=== PATIENT | male | born 1930 | race Caucasian/White ===

== ENCOUNTER 2016-06-18 09:30 | Inpatient (IN) | payer MEDICARE, BC ==
--- NOTE | ~2016-06-18 | EKG ---
PATIENT: WHITNEY SALAZAR UNIT #: [id number] Ventricular Rate: 140 BPM Atrial Rate: 156 BPM QRS Duration: 146 ms Q-T Interval: 370 ms QTC Calculation(Bezet): 564 ms Calculated R [place]: -154 degrees Calculated T [place]: 41 degrees Diagnosis Line: Atrial fibrillation with rapid ventricular Diagnosis Line: response Diagnosis Line: Right bundle branch block with repolarization Diagnosis Line: abnormality Diagnosis Line: Cannot rule out Anteroseptal infarct (cited on or Diagnosis Line: before 27-MAR-2011) Diagnosis Line: Abnormal ECG Diagnosis Line: When compared with ECG of 06-FEB-2014 12:03, Diagnosis Line: Atrial fibrillation has replaced Ectopic atrial Diagnosis Line: rhythm Diagnosis Line: Vent. rate has increased BY 87 BPM Diagnosis Line: Right bundle branch block is now Present Diagnosis Line: Questionable change in initial forces of Septal Diagnosis Line: leads Diagnosis Line: Confirmed by GUILLERMO ROCHA MD ([id number]) on 06/19/2016 Diagnosis Line: 6:16:20 PM INTERPRETING MD: JOSEFINA BSAS
--- NOTE | ~2016-06-18 | CO ---
Unit #: [id number] #: [id number] Patient: WHITNEY FATIMA [id number] [address] [place], [place] [address] [id number] I MR#: [id number] NAME: WHITNEY FATIMA ROOM: 569 Age: 85 Sex: M Admission Date: 06/19/2016 : 1930 Attending Physician: Lyndon Salas M.D. Primary Care Physician: Wojciech Sosa M.D. Consultation Date: 06/19/2016 CONSULTATION REPORT REASON FOR CONSULTATION Chronic kidney disease and congestive heart failure. HISTORY OF PRESENT ILLNESS Mr. Fatima is a very pleasant 85-year-old gentleman, who is a long-term patient of Dr. Leslie, who follows him for his history of heart disease, who was admitted after a fall at home. The patient had tripped and landed on his face and also has a broken bone in his left arm. There was no syncope associated with this fall. The patient is being followed after the fall here in the hospital and has also been treated for some atrial fibrillation with RVR as well as some shortness of breath and edema issues with congestive heart failure. The patient has long-term lower extremity swelling issues. He is noted to be on Norvasc. His states that he has also had some issues with shortness of breath and dyspnea on exertion at home. The patient denies any chest pain. No urinary complaints. No NSAID use. No history of kidney stones. The patient is still sore from his fall. PAST MEDICAL HISTORY Significant for coronary artery disease, chronic kidney disease stage 2, valvular heart disease, endocarditis, atrial fibrillation, hypertension, and hyperlipidemia. PAST SURGICAL HISTORY CABG, tissue aortic valve replacement, cholecystectomy, hemorrhoid surgery, and hernia repair. HOME MEDICATIONS Toprol-XL 25 mg a day, potassium chloride 10 mEq a day, penicillin 500 mg b.i.d., baby aspirin b.i.d., Ranexa 500 mg b.i.d., niacin a 1000 mg a day, Crestor 10 mg at bedtime, Plavix 75 mg a day, Lasix 40 mg a day, amiodarone 200 mg a day, Norvasc 2.5 mg a day, and magnesium oxide daily. ALLERGIES He has no known drug allergies. FAMILY HISTORY Significant for heart disease and hypertension. No family history of kidney problems. SOCIAL HISTORY The patient is . No alcohol, tobacco, or drug use. REVIEW OF SYSTEMS Unit #: [id number] #: [id number] Patient: WHITNEY FATIMA A complete 12-point review of systems was completed with the above findings. In addition, he denies any fevers or chills. No headache or dizziness. No nosebleed, sore throat, or earache. No cough or hemoptysis. No nausea, vomiting, or diarrhea. No abdominal pain. No rash or itching. No flank pain. No night sweats or hot flashes. No intolerance to heat or cold. He has had some bleeding from his facial wounds. No recent weight changes, but he probably has gained weight with his fluid retention. Unless otherwise indicated, the review of systems was negative. PHYSICAL EXAMINATION VITAL SIGNS: The patient is afebrile, pulse 98, respiratory rate 20, blood pressure 134/90, I's and O's are negative by 890 mL. GENERAL: This is a pleasant 85-year-old white male, sitting up in bed, alert, and oriented. Currently, in no acute distress. HEENT: Head is normocephalic. He does have some skin lacerations and bruising on his face. Eyes show pink conjunctivae with no scleral icterus. No nosebleed. Oropharynx is moist. No thrush. NECK: Shows no rigidity. HEART: Irregularly irregular with a murmur present. No rub appreciated. LUNGS: Shows some bibasilar rales more so on the left than the right. Breathing is nonlabored. ABDOMEN: Soft, nontender, and nondistended. Bowel sounds are present. EXTREMITIES: No lower extremity clubbing or cyanosis. He has 2+ pitting edema below the knees bilaterally. SKIN: Dry with no rashes. He does have some scattered bruising. MUSCULOSKELETAL: No CVA tenderness to palpation. Left arm is in a cast. NEUROLOGIC: Cranial nerves are grossly intact with no gross motor deficits. LYMPHATIC: There is no neck or cervical lymphadenopathy. PSYCHIATRIC: Mood and affect appear normal. DIAGNOSTIC STUDIES LABORATORY RESULTS: CBC this morning was remarkable only for a platelet count of 84. Chemistry this morning; sodium 137, potassium 3.2, chloride 103, bicarb 23, BUN and creatinine were 16 and 1.2 respectively. CK level 113, troponin negative. Uric acid level was 6.9, phosphorus 2.9, magnesium 2. Urinalysis done yesterday showed 2+ protein and no significant blood. BNP on admission was 1100. Creatinine on admission was 1.4, which looks to be near his baseline. Previous UAs here have demonstrated consistent proteinuria. IMAGING STUDIES: The patient did have a kidney ultrasound in 04/2016, which showed a small cyst in the right kidney. ASSESSMENT AND PLAN 1. Chronic kidney disease, stage 2. Overall, the patient's kidney function remained stable and is likely due to underlying nephrosclerosis. We will monitor with needed diuresis. 2. Congestive heart failure, which is due to mitral valvular disease and diastolic dysfunction. Agree with continued IV Bumex. 3. Hypokalemia. Magnesium level was okay and we will be replacing this aggressively this morning. 4. Edema. Agree with diuresis and stopping his Norvasc. 5. Proteinuria. We will consider CAT inhibition or angiotensin receptor marty once we complete his aggressive diuresis. 6. History of endocarditis, on penicillin. Unit #: [id number] #: [id number] Patient: WHITNEY FATIMA 7. History of coronary artery bypass grafting and aortic valve replacement. 8. History of atrial fibrillation. I would like to thank Dr. Salas for this consult and the opportunity to participate in evaluation and care of Mr. Fatima. Dictated by... Dwayne Hobson Jr., MJelani. PITA/akil TD: 06/19/2016 08:43 JOB #: [id number] CONSULTATION REPORT X Dwayne Hobson MD X CONSULTATION REPORT
--- NOTE | ~2016-06-18 | CO ---
Unit #: [id number] #: [id number] Patient: WHITNEY FATIMA [id number] [address] [address] [id number] I MR#: [id number] NAME: WHITNEY FATIMA. ROOM: 569 Age: 85 Sex: M Admission Date: 06/19/2016 : 1930 Attending Physician: Lyndon Salas M.D. Primary Care Physician: Wojciech Sosa M.D. Consultation Date: 06/19/2016 CONSULTATION REPORT CHIEF COMPLAINT Left wrist pain, status post fall. HISTORY OF PRESENT ILLNESS Mr. Fatima is an 85-year-old male with a history of CHF, atrial fibrillation, and multiple cardiac surgeries. He has history of chronic kidney disease. Yesterday, he was walking down the driveway when he fell and landed on his left wrist and face. He had left wrist pain as well as significant amount of bleeding due to his facial laceration, so he was brought to the [facility] ER for further workup. In the ER, he was diagnosed with a left distal radius fracture. He was placed in a short-arm splint and Orthopedic Surgery was consulted for further evaluation. He was admitted for CHF exacerbation, atrial fibrillation, and chronic kidney disease. PAST MEDICAL HISTORY 1. Coronary artery disease, status post coronary artery bypass graft x4. 2. Tissue aortic valve replacement. 3. Atrial fibrillation. 4. Hypertension. 5. Hyperlipidemia. 6. Chronic kidney disease. PAST SURGICAL HISTORY 1. Coronary artery bypass graft and tissue aortic valve replacement. 2. Cholecystectomy. 3. Hemorrhoid surgery. 4. Hernia repair. HOME MEDICATIONS Metoprolol succinate, potassium chloride, penicillin, aspirin, Ranexa, niacin, Crestor, Plavix, Lasix, amiodarone, Norvasc, magnesium oxide. ALLERGIES No known drug allergies. SOCIAL HISTORY The patient lives at home with his . He denies any tobacco use. He denies any history of alcohol or illicit drug use. FAMILY HISTORY Noncontributory to current illness. Unit #: [id number] #: [id number] Patient: WHITNEY FATIMA REVIEW OF SYSTEMS A 10-point review of systems was conducted, it is negative except for as noted in the HPI. PHYSICAL EXAMINATION VITAL SIGNS: Temperature is 98.0, pulse is 102, respirations 18, blood pressure 125/59. CONSTITUTIONAL: This is an 85-year-old male, who is currently sitting up in a chair in his room. He is in no acute distress. SKIN: There are multiple lacerations on his face that has been closed with sutures. HEENT: Normocephalic. Pupils are equal, round, and reactive to light. NECK: Supple without thyromegaly or lymphadenopathy. HEART: Rhythm is irregular. LUNGS: Symmetric chest rise. No increased work of breathing. ABDOMEN: Soft. NEUROLOGIC: Cranial nerves II through XII are grossly intact. PSYCHIATRIC: The patient is awake, alert, oriented x3. EXTREMITIES: The left upper extremity is examined. He is currently in a short-arm splint. He has mild swelling in the left hand. He is neurovascularly intact in the median, ulnar, and radial nerve. He has normal sensation to light touch in all 5 digits. DIAGNOSTIC STUDIES LABORATORY RESULTS: White blood cell count is 4.6, hemoglobin 13.5, hematocrit is 40.6. IMAGING STUDIES: An x-ray of the left wrist reveals a nondisplaced left distal radius fracture. There is no dorsal tilt noted with x-ray. IMPRESSION Left distal radius fracture. PLAN The patient has a nondisplaced left distal radius fracture. At this time, he has not required any surgical intervention. He will remain nonweightbearing of the left upper extremity and in a splint. We will have nursing staff keep his left upper extremity elevated and use ice as needed for swelling. He will follow up in our office in 1 week time for repeat x-ray of the left wrist and casting and bracing. He may perform range of motion of the fingers in the left hand as tolerated. Dictated by... Olaf Dickinson APRN for Hong Iglesias/akil TD: 06/19/2016 21:29 JOB #: [id number] Unit #: [id number] #: [id number] Patient: WHITNEY FATIMA CONSULTATION REPORT X OLAF DICKINSON APRN X CONSULTATION REPORT
--- NOTE | ~2016-06-18 | CR141 ---
[facility] A Service of [facility] & [facility] RADIOLOGY TEXT RESULTS PATIENT: WHITNEY SALAZAR LOCATION: [facility] 569-01 : 31 UNIT #: [id number] AGE: [address]: Lyndon Salas MD SEX: M ORDER DR: [id number] [facility] [address] [facility]. [place], [place] [address] [id number] I MR#: [id number] Acc #: [id number] NAME: WHITNEY SALAZAR. : 1930 SEX: M STUDY DATE/TIME: 06/18/2016 13:53 UNIT: CEDOF ROOM: [id number] STUDY DESCRIPTION: CR Hand Min 3 Views Lt Attending Physician: Lyndon Salas M.D. Ordering Physician: Mirna Morin M.D. Primary Care Physician: Wojciech Sosa M.D. MEDICAL IMAGING REPORT This report is preliminary unless electronic signature is present EXAM Left hand 06/18/2016 HISTORY Pain after falling this morning. TECHNIQUE 3 views of the _hand_ were obtained. FINDINGS 3 views of the hand show a linear lucency through the distal radius that is nondisplaced and not impacted but suspicious for a hairline fracture. There may be a vertical component extending to articular surface of the distal radius. Also noted are advanced degenerative changes at the first carpometacarpal joint. There are moderate degenerative changes at the third MCP joint and at the interphalangeal joints at the digits. No radiodense foreign bodies are seen over the hand but there is a small metallic density seen very superficially that may be related to either a watch or a band. It might be on the skin rather than in the skin. It measures about 1-2 mm in diameter. IMPRESSION 1. Probable comminuted nondisplaced distal radial fracture. 2. Degenerative changes at the wrist and hand. 3. No fractures at the hand. Dictated by... Roshan Tapia M.D. THIS IS AN ELECTRONICALLY VERIFIED REPORT Roshan Tapia M.D. at 06/19/2016 8:39 [address] [facility] A Service of [facility] & [facility] RADIOLOGY TEXT RESULTS PATIENT: WHITNEY SALAZAR LOCATION: [facility] 569-01 : 31 UNIT #: [id number] AGE: [address]: Lyndon Salas MD SEX: M ORDER DR: Zoe TD: 06/18/2016 15:59 JOB #: [id number] MEDICAL IMAGING REPORT COPY
--- NOTE | ~2016-06-18 | HP ---
Unit #: [id number] #: [id number] Patient: WHITNEY SALAZAR [id number] [address] [place], [place] [address] [id number] I MR#: [id number] NAME: WHITNEY SALAZAR ROOM: 569 Age: 85 Sex: M Admission Date: 06/18/2016 : 1930 Attending Physician: Lyndon Salas M.D. Primary Care Physician: Wojciech Sosa M.D. HISTORY AND PHYSICAL REVISED REPORT HISTORY OF PRESENT ILLNESS This is an 85-year-old white male known to Dr. Leslie with a past medical history of coronary artery disease, status post coronary artery bypass grafting x4 on May 25, [address] Jung at [facility]. The patient had a tissue aortic valve replacement subsequently. 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 He is on chronic penicillin. According to documentation, he was seen by Dr. Langley for endocarditis and did not want to undergo surgery. He is known to have atrial fibrillation. Last EKG from May 2015 revealed atrial fibrillation. The patient has refused anticoagulation. He presented to the hospital after sustaining a fall. The patient states that he tripped and fell and landed on his face. There were no precipitating symptoms of dizziness or palpitations. He denies any chest pain. He has had some shortness of breath with exertion but no PND or orthopnea. He admits to chronic lower extremity edema but states that it is no worse than normal. In the emergency department, his temperature was 97.7, pulse 133, respirations 26 and blood pressure 126/[address] of the maxillofacial area revealed a transversely oriented complete fracture at the most superior aspect of the midline nasal none. There was associated softy tissue swelling along the nose. CT of the head revealed no acute findings. Labs revealed a creatinine of 1.4. Potassium and magnesium were normal. CBC was unremarkable. EKG revealed atrial fibrillation with a rapid ventricular response and a right bundle branch block. The patient was started on an amiodarone drip for atrial fibrillation and Cardiology was consulted. PAST MEDICAL HISTORY 1. Coronary artery disease, status post coronary artery bypass grafting x4 with left internal mammary artery to the LAD, saphenous vein graft to the left circumflex, saphenous vein graft to the first obtuse marginal, and saphenous vein graft to the posterior lateral marginal by Dr. Jung at [facility] May 25, 2000. 2. Tissue aortic valve replacement 05/25/2006. 3. History of chronic endocarditis on penicillin. 4. Two-D echocardiogram May 2015 at [facility] revealed: Normal left ventricular systolic function. Mild mitral regurgitation. Mild mitral stenosis. Mild tricuspid regurgitation. No pericardial effusion. 5. Atrial fibrillation, likely permanent. According to documentation patient refuses anticoagulation. 6. Hypertension. Unit #: [id number] #: [id number] Patient: WHITNEY SALAZAR 7. Hyperlipidemia 8. Chronic kidney disease. PAST SURGICAL HISTORY 1. Coronary artery bypass grafting and tissue aortic valve replacement. 2. Cholecystectomy. 3. Hemorrhoid surgery. 4. Hernia repair. HOME MEDICATIONS 1. Metoprolol succinate 25 mg p.o. daily. 2. Potassium chloride 10 mEq p.o. daily. 3. Penicillin 500 mg p.o. b.i.d. 4. Aspirin 81 mg p.o. b.i.d. 5. Ranexa 500 mg p.o. b.i.d. 6. Niacin 1000 mg p.o. daily. 7. Crestor 10 mg p.o. q.h.s. 8. Plavix 75 mg p.o. daily. 9. Lasix 40 mg p.o. daily. 10. Amiodarone 200 mg p.o. daily. 11. Norvasc 2.5 mg p.o. daily. 12. Magnesium oxide 400 mg p.o. daily. ALLERGIES No known drug allergies. SOCIAL HISTORY The patient lives in a private residence. He is a nonsmoker. There are no reports of alcohol or illicit drug use. FAMILY HISTORY Significant for heart disease in his mother, sister and brother. REVIEW OF SYSTEMS Twelve-point review of systems negative except for details noted above in HPI. PHYSICAL EXAMINATION VITAL SIGNS: Temperature 98.1. Pulse 112. Blood pressure 134/92. CONSTITUTIONAL: This is an 85-year-old white male in no acute distress. SKIN: Skin is warm and dry. NECK: Neck is supple. Positive jugular vein distention. No hepatojugular reflux. Normal carotid upstrokes. No carotid bruits are auscultated. HEART: S1, S2. Irregularly irregular and tachycardia. No murmurs, rubs or gallops. LUNGS: Bilateral breath sounds have rales in the bases. Respirations even and unlabored. No rhonchi or wheezes. ABDOMEN: Soft, nontender and nondistended. Positive bowel sounds auscultated x4 quadrants. No ascites noted. EXTREMITIES: Bilateral lower extremities have +3 pitting edema. DP and PT pulses 2+. Capillary refill less than two seconds. DIAGNOSTIC STUDIES LABORATORY: White blood cell count 4.6, hemoglobin 13.5, hematocrit 40.6, platelets 101, sodium 137, potassium 3.6, chloride 104, CO2 22, BUN 18, creatinine 1.4, glucose 112, magnesium 2.0, AST 43, ALT 38, alkaline phosphatase 135, troponin 0.03 and 0.05. UA with trace leukocytes. Unit #: [id number] #: [id number] Patient: WHITNEY SALAZAR IMAGING: Chest x-ray reveals moderately severe congestive heart failure new since previous exam. CT of the maxillofacial area without contrast reveals a transversely oriented complete fracture of the most superior aspect of the midline nasal bones. Distal fracture fragment measures about 5 mm in length and shows very mild inferior angulation with no significant distraction or displacement. Deep to this there is a fracture of the anterior bony nasal septum near its junction with the nasal bones. There is also a fracture of the anterior inferior nasal spine. There is associated soft tissue swelling along the nose. There is a small area of subcutaneous air favored to be a reflection of the nasal fractures. No other fracture seen. Degenerative changes in the cervical spine. CT of the head without contrast reveals no acute finding. Cerebral atrophy and microangiopathic disease noted. Extensive mucosal thickening seen throughout the ethmoid sinuses with air fluid level noted within the right maxillary sinus and extensive fluid and debris seen within the right nasopharynx. CARDIOVASCULAR: EKG reveals atrial fibrillation with a rapid ventricular response of 140 beats per minute. Right bundle branch block. Possible right axis deviation. Poor R-wave progression in the lateral leads. QTc prolonged to 564 msec. IMPRESSION 1. Status post mechanical fall with midline nasal bone fractures. 2. Facial lacerations. 3. Acute diastolic congestive heart failure secondary to mitral valve disease. 4. Recurrent endocarditis of the mitral valve. 5. Coronary artery disease, status post four vessel coronary artery bypass grafting in 2000. 6. Valvular heart disease, status post tissue aortic valve replacement for aortic stenosis in 2006. 7. Permanent atrial fibrillation with rapid ventricular rate, refuses anticoagulation. 8. Chronic kidney disease. PLAN 1. The patient presented to the hospital after sustaining a fall. CT of the maxillofacial area revealed a nasal fracture. 2. Cardiology was consulted due to fall and atrial fibrillation. The patient has a history of atrial fibrillation and this is likely permanent. His amiodarone will be discontinued. 3. His beta marty will be increased with the first dose given now. 4. There is evidence of volume overload and congestive heart failure. He will be started on IV Bumex, strict intake and output and fluid restriction. 5. He will be placed on a potassium supplement. 6. He will be continued on home dosing of aspirin, Ranexa, niacin, Plavix and hydralazine. 7. Dr. Lee with Nephrology will be consulted per patient request. 8. There are no complaints of chest pain. Will trend cardiac enzymes and EKG. 9. A TSH and fasting lipid profile will be obtained in the a.m. Unit #: [id number] #: [id number] Patient: WHITNEY SALAZAR Dictated by Lashonda Malik APRN for Hong Matos/sofia TD: 06/18/2016 17:47 JOB #: [id number] HISTORY AND PHYSICAL X X HISTORY AND PHYSICAL
--- NOTE | ~2016-06-18 | DS ---
Unit #: [id number] #: [id number] Patient: WHITNEY SALAZAR [id number] [address] [place], [place] [address] [id number] I MR#: [id number] NAME: WHITNEY SALAZAR ROOM: 569 Age: 85 Sex: M Admission Date: 06/19/2016 : 1930 Discharge Date: 06/22/2016 Attending Physician: Lyndon Salas M.D. Primary Care Physician: Wojciech Sosa M.D. DISCHARGE SUMMARY DISCHARGE DIAGNOSES 1. Status post mechanical fall with mid nasal bone fracture and also a left distal radius fracture with nondisplaced. No surgery required. 2. Acute diastolic congestive heart failure, LVEF of 60% to 65%. Last 2D echo done in Dr. Leslie's office on 06/12/2015 revealed LVEF of 60% to 65% with mild mitral regurgitation, mild mitral stenosis, mild tricuspid regurgitation. 3. History of coronary artery bypass graft back in 2010, AYALA to the LAD, saphenous vein graft to the circumflex, saphenous vein graft to the obtuse marginal 1, and saphenous vein graft to the posterolateral marginal by Dr. Jung at [facility]. 4. Aortic valve replacement with a tissue valve in 2006. 5. Hypokalemia. 6. Acute renal insufficiency, which is improved. 7. Thrombocytopenia. 8. Prominent atrial fibrillation with rapid ventricular response. Had been refusing anticoagulation but now is willing to take Pradaxa. 9. 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 DISCHARGE MEDICATIONS 1. Mag oxide 400 mg p.o. daily. 2. Pradaxa 75 mg p.o. twice daily, new prescription. 3. Metoprolol 50 mg p.o. every 12 hours. 4. Lasix 40 mg increased to twice daily. 5. Crestor 10 mg p.o. daily. 6. Penicillin 500 mg p.o. daily. 7. Ranexa 500 mg p.o. twice daily. 8. Aspirin and Plavix since starting on Pradaxa. 9. Potassium 10 mEq p.o. twice daily. 10. Niacin 1,000 mg p.o. daily. 11. Adams nasal spray as directed. HOSPITAL COURSE The is an 85-year-old white male who was brought into the hospital after sustaining a mechanical fall. He said he tripped and fell and landed on his face. He has got some abrasions on his midline nasal bone. CT of his maxillofacial area revealed a transversely complete fracture at the most superior aspect of the midline nasal bone. There is also some associated tissue swelling along the nose. CT of the head revealed nothing acute. There was also noted a fracture of the anterior inferior nasal spine. The patient also complained of pain in his left wrist after he fell. He had x-rays done and it did reveal a nondisplaced left distal radius fracture. Orthopedic surgery has seen the patient and they feel like that at this Unit #: [id number] #: [id number] Patient: WHITNEY SALAZAR time it would not require any surgical intervention, just a splint. The plans are for him to follow up in their office in one week and repeat the x-ray of the left wrist, and cast and bracing. Patient was found to be in acute on chronic kidney disease, along with atrial fibrillation. We asked nephrology to be on the case due to needing to diurese, due to fluid overload. With his chronic kidney disease, he was maintained on IV Bumex during this hospitalization and had good results. He has got decreased lower extremity edema and he states he feels he is breathing better when he ambulates. He has been ambulating up in the room in the ham without a lot of dyspnea and he says his edema has improved. Also stopped his Norvasc, which he was on at home, that seemed to also be helping his lower extremity edema. Dr. Olivera had a long discussion with the patient about the risks and benefits of being on anticoagulation for his atrial fibrillation. He did not like the idea of the Coumadin, coming in for frequent lab tests, etc, so she talked to him about one of the newer anticoagulants and he was agreeable to try. Ran the cost of several and Pradaxa 75 mg p.o. twice daily is the option, it is $47 a month and it was checked with the patient and he says he is comfortable with that cost. The prescription was filled and it is with the patient because he had is filled at [facility]. The patient will be seeing a upholstery trimmer as an outpatient and he will be making that appointment tomorrow. The patient today on discharge, his BUN is 30 with a creatinine of 1.5. Also, Dr. Gastelum's recommendation is for him to be on Lasix 20 mg p.o. twice daily, instead of one daily and to be on supplemental potassium. The patient did have some low potassium during this admission and it was supplemented. On the day of discharge, the patient is in stable condition. He denies any increased shortness of breath or dizziness or shortness of breath. He did not have any signs or symptoms of unstable angina on admission. His cardiac enzymes are negative. EKG never showed any acute ischemic changes. The patient's rhythm remains in atrial fibrillation. His rate was a little tachycardic on admission and his metoprolol has been increased from 25 daily to 50 mg every 12 hours, along with stopping his amiodarone since he is maintaining a normal sinus rhythm and stopping the Norvasc. His blood pressure has remained stable. Dr. Salas wants to discontinue his Plavix and aspirin to avoid any problems with bleeding while he has been started on new anticoagulation and Pradaxa. Also has started the patient on some Lanoxin during this admission but that will be stopped also. Due to having some renal issues and his heart rate and blood pressures being better controlled on the metoprolol at the higher dose. PHYSICAL EXAMINATION AT TIME OF DISCHARGE VITAL SIGNS: Blood pressure 126/60, heart rate is 70, respirations 18, afebrile. HEART: S1 and S2, regular rate and rhythm. Soft systolic murmur left sternal border. LUNGS: Diminished but clear. ABDOMEN: Soft, nontender. EXTREMITIES: Pedal pulses are palpable with decreased edema. LATEST LABORATORY/DIAGNOSTIC DATA Glucose was 104, BUN 30, creatinine 1.5, EGFR is 47.4, sodium 135, potassium 3.2. He is getting a total of 40 mEq x2 doses today before discharge. Chloride is 94, CO2 30, calcium is 9.0, phosphorus 5.0, magnesium 2.0. WBC 7.5, hemoglobin 12.2, hematocrit 36.4 and platelets is Unit #: [id number] #: [id number] Patient: WHITNEY SALAZAR 102. CARDIOLOGY STUDIES: EKG continued showing atrial fibrillation with controlled rates of the 70s and 90s. PLAN/INSTRUCTIONS 1. Patient will be discharged home today. Instructed to followup with his primary care physician in one to two weeks. Will have a BNP as an outpatient. 2. Patient is going to make a followup appointment with Dr. Gastelum as an outpatient for followup with his renal issues. 3. Patient is going to make an appointment to see Dr. Leslie in the next week to two weeks to go over everything that was changed during his hospitalization. 4. Discuss with the patient fluid restriction and precautions with Pradaxa. Also stopped his aspirin and Plavix due to being started on Pradaxa. 5. Followup with orthopedic surgeon for his distal radius fracture. 6. Discharge medications, see [facility]. [facility] med rec. Dictated by... Sonia Dolan A.P.R.N. for Hong Matos/ts TD: 06/22/2016 17:41 JOB #: [id number] CC: Edyta Leslie M.D. [facility] [place] [facility] DISCHARGE SUMMARY X Sonia Dolan APRN X DISCHARGE SUMMARY
--- NOTE | ~2016-06-18 | CT101 ---
[facility] A Service of [facility] & [facility] RADIOLOGY TEXT RESULTS PATIENT: WHITNEY SALAZAR LOCATION: [facility] [id number] : 31 UNIT #: [id number] AGE: [address]: Lyndon Salas MD SEX: M ORDER DR: [id number] [facility] [address]. [place], [place] [address] [id number] MR#: [id number] #: [id number] NAME: WHITNEY SALAZAR. : 1930 SEX: M STUDY DATE/TIME: 06/18/2016 8:58 UNIT: C[facility] ROOM: [id number] STUDY DESCRIPTION: CT Maxillofacial Area Wo Cont Attending Physician: Lyndon Salas M.D. Ordering Physician: Mirna Morin M.D. Primary Care Physician: Wojciech Sosa M.D. MEDICAL IMAGING REPORT This report is preliminary unless electronic signature is present EXAM CT facial bones 06/18/2016 HISTORY Fall hit face, abrasion to nose and forehead today. Prior history of CHF, hypertension, hernia repair, CABG, gallbladder, hemorrhoid. TECHNIQUE This CT exam was performed with one or more of the following radiation dose reduction techniques: automatic control, adjustment of mA and/or kV according to patient size, and iterative reconstruction. FINDINGS CT facial bones performed. Bone and soft tissue windows reviewed. Sagittal and coronal reconstructions performed. Study significantly degraded by motion artifact. Please see today's dedicated CT of the brain for full discussion of intracranial findings. The visualized brain on this examination shows no acute abnormality. Soft tissue swelling involving the soft tissues of the nose and upper lip. There appears to be packing material in the right nostril. No subcutaneous radiodense foreign body. Soft tissue irregularity left aspect of the mid nose may reflect a small traumatic laceration or possibly a raised skin lesion. Weight should be given the clinical assessment. Question mild soft tissue swelling in the central and left paracentral upper forehead without soft tissue defect, subcutaneous air or radiodense foreign body. Question mild subcutaneous edema mandibular symphyseal and parasymphyseal region. The frontal sinuses are clear. Extensive mucosal thickening and ethmoid air cells with opacification of some right ethmoid air cells. Air-fluid level in the right maxillary sinus with some subtle hyperdense material suggesting products of hemorrhage. In the appropriate clinical context, the hyperdense material could represent inspissated mucus or sequelae of fungal infection. Mucosal thickening in left ethmoid air cells and left maxillary sinus. Mucosal thickening, minimal, in sphenoid sinuses. There [facility] A Service of [facility] RADIOLOGY TEXT RESULTS PATIENT: WHITNEY SALAZAR LOCATION: [facility] [id number] : 31 UNIT #: [id number] AGE: [address]: Lyndon Salas MD SEX: M ORDER DR: is retained secretions in the right nasal passages and right aspect of the nasal choanae. I do not believe there is airway compromise. Soft tissues of the oropharynx, pharyngeal mucosal retropharyngeal regions unremarkable. Prominent carotid bifurcation calcifications. The visualized portions of submandibular and parotid glands are unremarkable. Degenerative changes in the cervical spine. No indication of cervical spine fracture in very limited views of cervical spine. Visualized calvaria intact. I believe there is a fracture of the anterior-superior nasal bone. Overlying soft tissue swelling. Slight inferior angulation. No distraction. Questionable nondisplaced fracture of the anterior bony nasal septum. There is a fracture of the anterior inferior nasal spine with the small fracture fragment angled to the right. No significant distraction. Overlying soft tissue swelling but no soft tissue defect. The orbital bony mccartney appear intact. The intraorbital soft tissues are unremarkable. The zygomas, zygomatic arches, pterygoid plates are intact. The mandible shows no acute abnormality. There is a lower dental hardware present with resulting streak artifact. IMPRESSION 1. There is a transversely oriented complete fracture at the most superior aspect of the midline nasal bones. The distal fracture fragment measures about 5 mm in length and shows very mild inferior angulation but no significant distraction or displacement. Deep to this there is a fracture of the anterior bony nasal septum near its junction with the nasal bones. No significant distraction or displacement. There is a fracture of the anterior inferior nasal spine. The distal fracture fragment measures on the order of about 5 mm and is angled laterally to the right without significant distraction. There is associated soft tissue swelling along the nose. There are some small foci of subcutaneous air favored to be a reflection of the nasal fractures. There is some subtle cutaneous irregularity along the left paracentral anterior-superior nose. This may represent a laceration or raised skin lesion. Correlate with clinical exam. Soft tissue swelling in the upper lip without soft tissue defect, subcutaneous air or radiodense foreign body. There appears to be some mild soft tissue swelling in the mandibular symphyseal and parasymphyseal region again without soft tissue defect or subcutaneous foreign body. 2. No other fractures are seen. 3. Question mild soft tissue swelling central and left paracentral forehead without soft tissue defect or subcutaneous foreign bodies seen. 4. Prominent air-fluid level in the right maxillary sinus with some subtle hyperdense material favored in context of trauma to represent products of hemorrhage. Differential diagnosis could include sinusitis with inspissated mucus. In the appropriate clinical context, hyperdense material might be a reflection of fungal infection. This is felt less likely given the patient's history. 5. Mucosal thickening and opacification in multiple right ethmoid air STS. [facility] A Service of [facility] RADIOLOGY TEXT RESULTS PATIENT: WHITNEY SALAZAR LOCATION: [place] [address] : 31 UNIT #: [id number] AGE: [address]: Lyndon Salas MD SEX: M ORDER DR: cells. No definite ethmoid fracture is seen. 6. Areas of milder sinus disease as described in body of report. 7. Packing in the right nostril. Retained mucus in the right nasal passages and right aspect of nasal choanae. No airway compromise is seen at level of nasal choanae. 8. Prominent cervical carotid and cavernous carotid arterial calcifications. Correlate clinically. Consider assessment with elective carotid ultrasound. 9. Degenerative changes in the cervical spine. The visualized cervical spine shows no indication of traumatic fracture or malalignment. 10. See today's dedicated CT head for discussion of intracranial findings. Dictated by... Whitney Avila M.D. THIS IS AN ELECTRONICALLY VERIFIED REPORT Whitney Avila M.D. at 06/19/2016 12:31 PM MAYNOR/eleazar TD: 06/18/2016 12:43 JOB #: [id number] MEDICAL IMAGING REPORT COPY
--- NOTE | ~2016-06-18 | CT71 ---
[facility] A Service of [facility] & [facility] RADIOLOGY TEXT RESULTS PATIENT: WHITNEY SALAZAR LOCATION: [facility] [id number] : 31 UNIT #: [id number] AGE: [address]: Lyndon Salas MD SEX: M ORDER DR: [id number] [place] [address] [place], [place] [address] [id number] MR#: [id number] Acc #: [id number] NAME: WHITNEY SALAZAR. : 1930 SEX: M STUDY DATE/TIME: 06/18/2016 9:03 UNIT: [facility] ROOM: STUDY DESCRIPTION: CT Head Wo Contrast Attending Physician: Mirna Morin M.D. Ordering Physician: Mirna Morin M.D. Primary Care Physician: Wojciech Sosa M.D. MEDICAL IMAGING REPORT This report is preliminary unless electronic signature is present EXAM CT of head without contrast INDICATIONS Pain after a fall today. Patient fell and hit his face. TECHNIQUE Axial CT images were obtained from the vertex of the skull through the skull base. No intravenous contrast was administered. This CT exam was performed with one or more of the following radiation dose reduction techniques: automatic exposure control, adjustment of mA and/or kV according to patient size, and iterative reconstruction. FINDINGS No acute intracranial hemorrhage is identified. There is diffuse cerebral atrophy with compensatory ventricular dilatation which is keeping with the age of 85. There is no midline shift or mass effect. An area of decreased attenuation is seen within the left zelaya radiata, which likely reflects either asymmetric microangiopathic disease or perhaps sequelae of prior infarcts. Certainly, however its appearance is unchanged when compared to an exam from January 2009. There is dense atherosclerotic calcification of the cavernous carotid arteries. No calvarial fracture is seen. Extensive mucosal thickening is seen throughout the ethmoid sinuses with an air-fluid level seen within the right maxillary sinus and extensive fluid and debris seen within the right nasopharynx. No focal soft tissue abnormalities are seen. IMPRESSION 1. No acute intracranial hemorrhage identified. 2. Cerebral atrophy and microangiopathic disease is noted above. 3. No calvarial fracture is seen. 4. Extensive mucosal thickening seen throughout the ethmoid sinuses with STS. [facility] A Service of [facility] & [facility] RADIOLOGY TEXT RESULTS PATIENT: WHITNEY SALAZAR LOCATION: [facility] [address]-40 : 31 UNIT #: [id number] AGE: [address]: Lyndon Salas MD SEX: M ORDER DR: air fluid level noted within the right maxillary sinus and extensive fluid and debris seen within the right nasopharynx. Correlation with this patient's separately dictated maxillofacial CT is recommended. Dictated by... Sobia Rush M.D. THIS IS AN ELECTRONICALLY VERIFIED REPORT Sobia Rush M.D. at 06/18/2016 4:44 PM AFF/to TD: 06/18/2016 12:13 JOB #: [id number] MEDICAL IMAGING REPORT COPY
--- NOTE | ~2016-06-18 | CR281 ---
[facility] A Service of [facility] RADIOLOGY TEXT RESULTS PATIENT: WHITNEY SALAZAR LOCATION: [facility] : 31 UNIT #: [id number] AGE: [address]: Lyndon Salas MD SEX: M ORDER DR: [id number] [facility] [address]. [place], [place] [address] [id number] I MR#: [id number] Acc #: [id number] NAME: WHITNEY SALAZAR. : 1930 SEX: M STUDY DATE/TIME: 06/18/2016 13:54 UNIT: [facility] ROOM: 72916 STUDY DESCRIPTION: CR Wrist Min 3 View Lt Attending Physician: Lyndon Salas M.D. Ordering Physician: Mirna Morin M.D. Primary Care Physician: Wojciech Sosa M.D. MEDICAL IMAGING REPORT This report is preliminary unless electronic signature is present EXAM Left wrist HISTORY Wrist pain after falling this morning. TECHNIQUE 3 views of the wrist were obtained. FINDINGS There is a comminuted nondisplaced distal radial fracture that is intraarticular. No step-off is seen at the distal radius. The ulnar styloid is intact. No carpal bone fractures are seen. There is moderate joint space narrowing at the radioscaphoid joint and between the scaphoid and the capitate and there is advanced degenerative change at the first carpometacarpal joint. No additional carpal bone fractures are seen. IMPRESSION Comminuted intraarticular fracture of the distal radius that is nondisplaced and nonangulated. Degenerative changes at the wrist most severe at the first carpometacarpal joint. Dictated by... Roshan Tapia M.D. THIS IS AN ELECTRONICALLY VERIFIED REPORT Roshan Tapia M.D. at 06/18/2016 4:42 PM RLF/patriziar TD: 06/18/2016 16:05 JOB #: [id number] MEDICAL IMAGING REPORT [facility] A Service of [facility] RADIOLOGY TEXT RESULTS PATIENT: WHITNEY SALAZAR LOCATION: [facility] [id number] : 31 UNIT #: [id number] AGE: [address]: Lyndon Salas MD SEX: M ORDER DR: COPY
--- NOTE | ~2016-06-18 | EKG ---
PATIENT: WHITNEY SALAZAR UNIT #: [id number] Ventricular Rate: 102 BPM Atrial Rate: 102 BPM QRS Duration: 152 ms Q-T Interval: 356 ms QTC Calculation(Bezet): 463 ms Calculated R Hudson: -50 degrees Calculated T Hudson: 34 degrees Diagnosis Line: Atrial fibrillation Diagnosis Line: Right bundle branch block Diagnosis Line: Left anterior fascicular block Diagnosis Line: Bifascicular block Diagnosis Line: Cannot rule out Inferior infarct , age Diagnosis Line: undetermined Diagnosis Line: Anteroseptal infarct (cited on or before Diagnosis Line: 27-MAR-2011) Diagnosis Line: Abnormal ECG Diagnosis Line: When compared with ECG of 18-JUN-2016 07:53, Diagnosis Line: (unconfirmed) Diagnosis Line: Questionable change in initial forces of Septal Diagnosis Line: leads Diagnosis Line: Confirmed by DENIA SALDIVAR MD ([id number]) on 06/21/2016 Diagnosis Line: 5:49:01 PM INTERPRETING MD: YARIEL BASS
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
[2016-06-18 08:58] LABS: BASOPHIL% 0.7 % (0-2.5); EOSINOPHIL# 0.2 X10e3 (0-0.7); EOSINOPHIL% 4.4 % (0.0-7.0); HEMATOCRIT 40.6 % (38.0-50.0); HEMOGLOBIN 13.5 gm/dL (13.0-16.0); LYMPHOCYTE# 1.1 X10e3 (1.0-3.5); LYMPHOCYTE% 24.8 % (17.0-45.0); MEAN CELL VOLUME 100.3 FL (83-96); MEAN CORPUSCULAR HEMOGLOBIN 33.4 PG (28-34); MEAN CORPUSCULAR HGB CONC 33.4 g/dL (30-36); MEAN PLATELET VOLUME 8.2 FL (6.5-11.5); MONOCYTE# 0.3 X10e3 (0-1.0); MONOCYTE% 6.3 % (3.0-12.0); NEUTROPHIL# 2.9 X10e3 (1.5-7.1); NEUTROPHIL% 63.8 % (40-75); PLATELET COUNT 101 X10e3 (140-420); RED BLOOD COUNT 4.05 X10e (3.90-5.60); RED CELL DISTRIBUTION WIDTH 16.5 % (11.0-15.5); WHITE BLOOD COUNT 4.6 X10e3 (4.0-10.5)
[2016-06-18 08:59] LABS: DIFF IND NO
[2016-06-18 09:05] LABS: INR 1.3; PARTIAL THROMBOPLASTIN TIME 26.4 SECONDS (23.5-31.3); PROTHROMBIN TIME (PATIENT) 13.7 SECONDS (9.6-11.5)
[2016-06-18 09:18] LABS: ALBUMIN SERUM 3.7 g/dL (3.5-5.0); BILIRUBIN, DIRECT 0.6 mg/dL (0.0-0.2); BILIRUBIN,INDIRECT 1.1 mg/dL (0.0-0.9); BILIRUBIN,TOTAL 1.7 mg/dL (0.2-2.0); BUN/CREATININE RATIO 12.85; CALCIUM SERUM 8.8 mg/dL (8.4-10.2); CREATININE SERUM 1.4 mg/dL (0.6-1.4); GLOM FILT RATE Estimated 51.3 mL/min (>60); POTASSIUM 3.6 mmol/L (3.5-5.1); PROTEIN TOTAL SERUM 7.4 g/dL (6.0-8.3)
[~2016-06-18 09:30] MED LIST: ACETAMINOPHEN PO; AMLODIPINE BES2.5 MG PO; ASPIRIN PO; ASPIRIN81 M1 PO; CARDIZEM SR PO; CARTIA XT180 MG PO; CORDARONE200 M1 PO; CRESTOR10 MG PO; DIASENSE MAGNE400 MG PO; FLAGYL PO; FUROSEMIDE40 MG PO; IMODIUM2 MG PO; KCL PO; LASIX PO; LEVAQUIN PO; LISINOPRIL PO; LOPRESSOR PO; MAG-OX 400400 MG PO; METOPROLOL SUCC25 MG PO; METOPROLOL SUCC50 MG PO; METOPROLOL TAR25 MG PO; MICRO-K PO; NASONEX17 GM; NIASPAN PO; NIASPAN1000 MG PO; NITROGYLCERIN SUBLINGUAL; NORVASC2.5 MG PO; PACERONE100 MG PO; PFIZERPEN-G5 MU IV; PLAVIX PO; POTASSIUM CHLO10 ME2 PO; PRINIVIL20 M1 PO; RANEXA500 MG DOB; RANEXA500 MG PO; ROCEPHIN IV; ZOCOR PO; [UNRECOGNIZED DRUG - CODE]
[2016-06-18 09:43] LABS: POC - CKMB 2.9 ng/mL (0.0-7.9); POC - TROPONIN <0.05 ng/mL (<=0.05)
[2016-06-18 12:09] LABS: POC - TROPONIN <0.05 ng/mL (<=0.05)
[2016-06-18] MEDS ORDERED: METOPROLOL SUCC25 MG PO (13:18)
[2016-06-18] MEDS ORDERED: KLOR-CON PO (13:18)
[2016-06-18] MEDS ORDERED: PENICILLIN PO (13:19)
[2016-06-18] MEDS ORDERED: ASPIRIN81 MG PO (13:19)
[2016-06-18] MEDS ORDERED: RANEXA500 MG PO (13:20)
[2016-06-18] MEDS ORDERED: NIASPAN PO (13:20)
[2016-06-18] MEDS ORDERED: CRESTOR PO (13:20)
[2016-06-18] MEDS ORDERED: PLAVIX PO (13:20)
[2016-06-18] MEDS ORDERED: NORVASC2.5 MG PO (13:21)
[2016-06-18] MEDS ORDERED: LASIX PO (13:21)
[2016-06-18] MEDS ORDERED: PACERONE PO (13:21)
[2016-06-18] MEDS ORDERED: MAGNESIUM400 M1 PO (13:22)
[2016-06-18 14:06] LABS: URINE SOURCE CLEAN CATCH
[2016-06-18 14:21] LABS: URINE APPEARANCE CLEAR; URINE BILIRUBIN NEG (NEG); URINE BLOOD NEG (NEG); URINE COLOR DK YELLOW; URINE GLUCOSE NEG (NEG); URINE KETONE NEG (NEG); URINE LEUKOCYTE ESTERASE TRACE (NEG); URINE NITRATE NEG (NEG); URINE PH 6.5 (5-8); URINE PROTEIN 2+ (NEG); URINE SPECIFIC GRAVITY 1.022 (1.003-1.035)
[2016-06-18 14:23] LABS: URBCS1 AUWI 0-2 /[HPF] (0-2); URINE BACTERIA AUWI NEG (NEGATIVE); URINE SQUAMOUS EPITHELIAL CELL OCC /[HPF]
[2016-06-18 14:25] LABS: CULTURE INDICATED? NO
[2016-06-18 14:37] LABS: URINE MUCUS PRESENT
[2016-06-18 15:42] LABS: PHOSPHOROUS 2.9 mg/dL (2.5-4.6); URIC ACID 6.9 mg/dL (2.6-7.2)
[2016-06-18 16:44] LABS: %MB 3.8 % (0.0-4.0); MB 3.6 ng/ml
[2016-06-18 18:14] LABS: CHOLESTEROL 108 mg/dL (0-200); HDL CHOLESTEROL 38 mg/dL (29-75); LDL CHOLESTEROL 50 mg/dL ([, -130]); LDL/HDL RATIO 1 RATIO (0-4); TRIGLYCERIDES 101 mg/dL (10-160)
[2016-06-18 22:05] LABS: %MB 3.5 % (0.0-4.0)
[2016-06-19 06:26] LABS: BASOPHIL% 0.5 % (0-2.5); EOSINOPHIL# 0.2 X10e3 (0-0.7); HEMATOCRIT 36.3 % (38.0-50.0); HEMOGLOBIN 12.3 gm/dL (13.0-16.0); LYMPHOCYTE# 1.1 X10e3 (1.0-3.5); LYMPHOCYTE% 15.9 % (17.0-45.0); MEAN CELL VOLUME 102.1 FL (83-96); MEAN CORPUSCULAR HEMOGLOBIN 34.5 PG (28-34); MEAN CORPUSCULAR HGB CONC 33.8 g/dL (30-36); MEAN PLATELET VOLUME 8.5 FL (6.5-11.5); MONOCYTE# 0.6 X10e3 (0-1.0); MONOCYTE% 8.1 % (3.0-12.0); NEUTROPHIL# 5.1 X10e3 (1.5-7.1); NEUTROPHIL% 72.5 % (40-75); PLATELET COUNT 84 X10e3 (140-420); RED BLOOD COUNT 3.55 X10e (3.90-5.60); RED CELL DISTRIBUTION WIDTH 16.5 % (11.0-15.5)
[2016-06-19 06:30] LABS: DIFF IND YES; WHITE BLOOD COUNT 7.1 X10e3 (4.0-10.5)
[2016-06-19 06:57] LABS: BLOOD UREA NITROGEN 16 mg/dL (9-23); BUN/CREATININE RATIO 13.33; CALCIUM SERUM 8.4 mg/dL (8.4-10.2); CARBON DIOXIDE 23 mmol/L (22-31); CHLORIDE 103 mmol/L (100-111); CHOLESTEROL 98 mg/dL (0-200); CREATININE SERUM 1.2 mg/dL (0.6-1.4); GLOM FILT RATE Estimated ABOVE60 mL/min (>60); GLUCOSE FASTING 95 mg/dL (70-110); HDL CHOLESTEROL 31 mg/dL (29-75); LDL CHOLESTEROL 51 mg/dL ([, -130]); LDL/HDL RATIO 2 RATIO (0-4); POTASSIUM 3.2 mmol/L (3.5-5.1); SODIUM 137 mmol/L (135-145); TRIGLYCERIDES 81 mg/dL (10-160)
[2016-06-19 07:18] LABS: PLATELET ESTIMATE DECREASED (NORMAL); RBC NORMAL YES
[2016-06-19 07:19] LABS: ANISOCYTOSIS SL
[2016-06-19 14:49] LABS: CREATININE,RANDOM URINE 24 mg/dL; TOTAL PROTEIN,RANDOM URINE 15 mg/dl (<10)
[2016-06-20 05:40] LABS: HEMATOCRIT 34.6 % (38.0-50.0); HEMOGLOBIN 11.8 gm/dL (13.0-16.0); MEAN CELL VOLUME 100.7 FL (83-96); MEAN CORPUSCULAR HEMOGLOBIN 34.3 PG (28-34); MEAN CORPUSCULAR HGB CONC 34.1 g/dL (30-36); MEAN PLATELET VOLUME 8.5 FL (6.5-11.5); RED BLOOD COUNT 3.43 X10e (3.90-5.60); RED CELL DISTRIBUTION WIDTH 16.2 % (11.0-15.5); WHITE BLOOD COUNT 7.8 X10e3 (4.0-10.5)
[2016-06-20 06:12] LABS: ALBUMIN SERUM 3.2 g/dL (3.5-5.0); BUN/CREATININE RATIO 14.61; CALCIUM SERUM 8.3 mg/dL (8.4-10.2); CREATININE SERUM 1.3 mg/dL (0.6-1.4); GLOM FILT RATE Estimated 55.9 mL/min (>60); MAGNESIUM 1.8 mg/dL (1.6-3.0); POTASSIUM 3.5 mmol/L (3.5-5.1); PROTEIN TOTAL SERUM 6.4 g/dL (6.0-8.3)
[2016-06-21 05:18] LABS: HEMATOCRIT 36.4 % (38.0-50.0); HEMOGLOBIN 12.2 gm/dL (13.0-16.0); MEAN CELL VOLUME 100.8 FL (83-96); MEAN CORPUSCULAR HEMOGLOBIN 33.7 PG (28-34); MEAN CORPUSCULAR HGB CONC 33.4 g/dL (30-36); RED BLOOD COUNT 3.61 X10e (3.90-5.60); RED CELL DISTRIBUTION WIDTH 15.8 % (11.0-15.5); WHITE BLOOD COUNT 8.5 X10e3 (4.0-10.5)
[2016-06-21 07:07] LABS: BUN/CREATININE RATIO 15.33; CALCIUM SERUM 8.7 mg/dL (8.4-10.2); CREATININE SERUM 1.5 mg/dL (0.6-1.4); GLOM FILT RATE Estimated 47.4 mL/min (>60); MAGNESIUM 1.7 mg/dL (1.6-3.0); POTASSIUM 3.5 mmol/L (3.5-5.1)
[2016-06-22 07:40] LABS: CREATININE SERUM 1.5 mg/dL (0.6-1.4); GLOM FILT RATE Estimated 47.4 mL/min (>60); POTASSIUM 3.2 mmol/L (3.5-5.1)
[2016-06-22] MEDS ORDERED: PRADAXA75 MG PO (15:38)
[2016-06-22] MEDS ORDERED: ACETAMINOPHEN PO (15:38)
[2016-06-22] MEDS ORDERED: LOPRESSOR PO (15:40)
[2016-06-22] MEDS ORDERED: LASIX PO (15:41)
[2016-06-22] MEDS ORDERED: SALINE MIST45 M1 (15:47)
== END 2016-06-22 18:43 | disposition home or self-care (01) | DRG 154 ==
LOC: CED 09:30 → CEDOF 12:07 → C5C 06-19 11:00
PROVIDERS: Emergency Medicine; Internal Medicine Cardiovascular Disease; Internal Medicine Nephrology; Nurse Practitioner Family
PROC: 0HQ1XZZ Repair Face Skin, External Approach (ICD-10-PCS; principal; 2016-06-19)
PROC: 2W3DX1Z Immobilization of Left Lower Arm using Splint (ICD-10-PCS; 2016-06-19)
DX: S02.2XXA Fracture of nasal bones, initial encounter for closed fracture (principal); I50.31 Acute diastolic (congestive) heart failure; D69.6 Thrombocytopenia, unspecified; I48.2 Chronic atrial fibrillation; S52.502A Unspecified fracture of the lower end of left radius, initial encounter for closed fracture; E87.6 Hypokalemia; S01.81XA Laceration without foreign body of other part of head, initial encounter; I13.0 Hypertensive heart and chronic kidney disease with heart failure and stage 1 through stage 4 chronic kidney disease, or unspecified chronic kidney disease; W01.10XA Fall on same level from slipping, tripping and stumbling with subsequent striking against unspecified object, initial encounter; Y93.01 Activity, walking, marching and hiking; Y92.093 Driveway of other non-institutional residence as the place of occurrence of the external cause; Y99.8 Other external cause status; N18.2 Chronic kidney disease, stage 2 (mild); I25.10 Atherosclerotic heart disease of native coronary artery without angina pectoris; Z95.1 Presence of aortocoronary bypass graft; Z95.4 Presence of other heart-valve replacement; N28.9 Disorder of kidney and ureter, unspecified; Z79.2 Long term (current) use of antibiotics; I45.10 Unspecified right bundle-branch block; R80.9 Proteinuria, unspecified; Z90.49 Acquired absence of other specified parts of digestive tract; Z82.49 Family history of ischemic heart disease and other diseases of the circulatory system
CPT/HCPCS: 36415; 70450; 70486; 71010; 73110; 73130; 80048; 80053; 80061; 80076; 81003; 82550; 82553; 82570; 83735; 83880; 84100; 84132; 84156; 84300; 84443; 84484; 84550; 85025; 85027; 85610; 85730; 89190; 93005; 94760; 96374; 96376; 97166; 99285; G8987-GO; G8988-GO; G8989-GO; J0282; J1160; J1650; J3475

== ENCOUNTER → 2016-07-08 | Outpatient (CLI) | payer MEDICARE, BC ==
[~2016-07-08] MED LIST changes: +ASPIRIN81 MG PO; +CRESTOR PO; +KLOR-CON PO; +MAGNESIUM400 M1 PO; +PACERONE PO; +PENICILLIN PO; +PRADAXA75 MG PO; +SALINE MIST45 M1
--- NOTE | ~2016-07-08 | CT57 ---
[facility] A Service of [facility] RADIOLOGY TEXT RESULTS PATIENT: WHITNEY SALAZAR LOCATION: [facility] : 32 UNIT #: [id number] AGE: [address]: Callie Green SEX: M ORDER DR: [id number] [facility] [address] [place], [place] [address] [id number] O MR#: [id number] Acc #: [id number] NAME: WHITNEY SALAZAR : 1930 SEX: M STUDY DATE/TIME: 07/08/2016 8:46 UNIT: [facility] ROOM: STUDY DESCRIPTION: CT Chest Wo Cont Attending Physician: Callie Green A.P.R.N. Ordering Physician: Callie Green A.P.R.N. Primary Care Physician: Wojciech Sosa M.D. MEDICAL IMAGING REPORT This report is preliminary unless electronic signature is present EXAM High-resolution chest CT without contrast. HISTORY 85-year-old male with short of breath for 2-3 years and abnormal pulmonary function tests. TECHNIQUE CT of the chest performed without contrast. Selected HRCT imaging obtained. This CT exam was performed with one or more of the following radiation dose reduction techniques: automatic exposure control, adjustment of mA and/or kV according to patient size, and iterative reconstruction. COMPARISON STUDIES 07/19/2011 FINDINGS There are some minimal areas of interstitial thickening in the periphery of the lungs. There is no evidence of bronchiectasis, honeycombing, or diffuse infiltrative lung disease. There is no airspace consolidation. No pleural effusion. There are mildly prominent mediastinal lymph nodes, which are nonspecific and may be reactive. Coronary artery calcification. Aortic valve replacement. Limited imaging of the upper abdomen demonstrates a cholecystectomy. Bone window demonstrate degenerative change of the spine. IMPRESSION 1. Minimal interstitial thickening in the periphery of the lungs probably represents some minimal fibrotic change. Interstitial edema could also be a consideration. No evidence of diffuse infiltrative STS. [facility] A Service [facility] RADIOLOGY TEXT RESULTS PATIENT: WHITNEY SALAZAR LOCATION: [facility] : 32 UNIT #: [id number] AGE: [address]: Callie Green SEX: M ORDER DR: lung disease, honeycombing, or bronchiectasis. 2. Additional findings, as described. Dictated by... Rashaun Stringer M.D. THIS IS AN ELECTRONICALLY VERIFIED REPORT Rashaun Stringer M.D. at 07/09/2016 11:31 AM ALYSIA/chepe TD: 07/08/2016 16:24 JOB #: [id number] MEDICAL IMAGING REPORT Page 1 of 1 COPY
== END | disposition home or self-care (01) ==
LOC: CCAT 08:28
DX: J84.10 Pulmonary fibrosis, unspecified (principal)
CPT/HCPCS: 71250